=== PATIENT | male | born 2000 | race Caucasian/White ===

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

== ENCOUNTER 2022-03-21 23:22 | Emergency (ER) | payer BC, OTHER ==
[~2022-03-21] VITALS: Ht 165.1 cm; Wt 57.6 kg
[~2022-03-21 23:22] MED LIST: ACET-683 PO
[2022-03-21 23:24] VITALS: BP 115/75
[2022-03-22 01:34] LABS: GC DNA AMPLIFICATION NEGATIVE (NEGATIVE)
[2022-03-22] MEDS ORDERED: DOXYCYCLINE HYCLATE 100MG TABLET PO ONE (03:05)
[2022-03-22] MEDS ORDERED: DOXY100T PO (03:08)
== END 2022-03-22 03:32 | disposition home or self-care (01) ==
LOC: M ED 23:22
DX: A74.9 Chlamydial infection, unspecified (principal); B34.8 Other viral infections of unspecified site; J02.9 Acute pharyngitis, unspecified

== ENCOUNTER 2022-04-12 21:55 | Emergency (ER) | payer BC, OTHER, SELFPAY ==
[~2022-04-12] VITALS: Ht 165.1 cm; Wt 56.8 kg
[~2022-04-12 21:55] MED LIST changes: +DOXY100T PO
[2022-04-12] MEDS ORDERED: NS 1,000 ML IV ONE (22:10)
[2022-04-13 00:05] LABS: AMPHETAMINES LEVEL URINE NEGATIVE (NEGATIVE); BARBITURATES URINE NEGATIVE (NEGATIVE); BENZODIAZEPINES URINE NEGATIVE (NEGATIVE); CANNABINOIDS URINE NEGATIVE (NEGATIVE); COCAINE METABOLITE URINE NEGATIVE (NEGATIVE); METHADONE URINE NEGATIVE (NEGATIVE); OPIATES URINE POSITIVE (NEGATIVE); PHENCYCLIDINE URINE NEGATIVE (NEGATIVE)
[2022-04-13] MEDS ORDERED: NALOXONE 2MG/2ML SYRINGE (J2310 PER 1MG) As Ordered ONE (00:21)
[2022-04-13] MEDS ORDERED: NALOXONE 2MG/2ML SYRINGE (J2310 PER 1MG) IV STA (00:21)
[2022-04-13] MEDS ORDERED: NALOXONE 2MG/2ML SYRINGE (J2310 PER 1MG) IM STA (00:21)
[2022-04-13 01:01] LABS: BASO # 0.1 10^3/uL (0.0-0.2); BASO % 0.4 % (0.0-1.0); EOS # 0.1 10^3/uL (0.0-0.5); EOS % 0.2 % (0.0-3.0); HEMATOCRIT 48.1 % (42.0-52.0); HEMOGLOBIN 16.5 g/dl (13.5-17.5); LYMPH # 2.4 10^3/uL (1.5-5.0); LYMPH % 9.9 % (24.0-44.0); MEAN CORPUSCULAR HEMOGLOBIN 28.9 pg (27.0-33.0); MEAN CORPUSCULAR HGB CONC 34.3 g/dl (32.0-36.5); MEAN CORPUSCULAR VOLUME 84.2 fl (80.0-96.0); MONO # 1.2 10^3/uL (0.0-0.8); MONO % 5.1 % (2.0-8.0); NEUTROPHILS # 19.9 10^3/uL (1.5-8.5); NEUTROPHILS % 83.9 % (36.0-66.0); PLATELET COUNT, AUTOMATED 349 10^3/uL (150-450); RED BLOOD COUNT 5.71 10^6/uL (4.30-6.10); WHITE BLOOD COUNT 23.7 10^3/uL (4.0-10.0)
[2022-04-13 01:42] LABS: ACETAMINOPHEN LEVEL < 2.0 UG/ML (10.0-20.0); ALBUMIN 3.8 G/DL (3.2-5.2); ALT/SGPT 24 U/L (7.0-40); BILIRUBIN,DIRECT 0.1 MG/DL (<0.4); BILIRUBIN,TOTAL 0.4 MG/DL (0.3-1.2); BLOOD UREA NITROGEN 10 MG/DL (9-23); CALCIUM LEVEL 9.3 MG/DL (8.5-10.1); CARBON DIOXIDE LEVEL 26 MMOL/L (20-31); CHLORIDE LEVEL 103 MMOL/L (98-107); CREATININE FOR GFR 0.83 MG/DL (0.70-1.30); ETHYL ALCOHOL (ETHANOL) 0.003 % (0.000-0.010); GLUCOSE, FASTING 98 MG/DL (60-100); POTASSIUM SERUM 4.5 MMOL/L (3.5-5.1); SODIUM LEVEL 140 MMOL/L (136-145); THYROID STIMULATING HORMONE 3.299 uIU/ML (0.48-4.17); TOTAL PROTEIN 6.6 G/DL (5.7-8.2)
[2022-04-13 01:49] LABS: SALICYLATE LEVEL < 3.0 MG/DL (<30)
[2022-04-13 03:00] VITALS: BP 124/59
[2022-04-21] MEDS ORDERED: NALOXONE 2MG/2ML SYRINGE (J2310 PER 1MG) IV STA (06:40)
[2022-04-21] MEDS ORDERED: NALOXONE 2MG/2ML SYRINGE (J2310 PER 1MG) IM STA (06:40)
== END 2022-04-13 03:20 | disposition left against medical advice (07) ==
LOC: M ED 21:55
DX: R09.2 Respiratory arrest (principal); T43.641A Poisoning by ecstasy, accidental (unintentional), initial encounter; Z53.9 Procedure and treatment not carried out, unspecified reason
CPT/HCPCS: 36415; 36600; 80048; 80076; 80143; 80307; 82077; 82550; 82803; 84443; 85025; 93005; 93041; 94760; 96360; 99285; J2310

== ENCOUNTER 2022-04-12 22:05 | Emergency (ER) | payer BC | END 2022-04-13 05:38 | disposition left against medical advice (07) | LOC: M ED 22:05 | DX: Z53.21 Procedure and treatment not carried out due to patient leaving prior to being seen by health care provider (principal) ==

== ENCOUNTER 2022-06-19 03:23 | Emergency (ER) | payer BC ==
[~2022-06-19] VITALS: Ht 165.1 cm; Wt 61.4 kg
[2022-06-19 03:24] VITALS: BP 116/72
[2022-06-19 05:24] LABS: GC DNA AMPLIFICATION NEGATIVE (NEGATIVE)
== END 2022-06-19 05:37 | disposition left against medical advice (07) ==
LOC: M ED 03:23
DX: Z53.21 Procedure and treatment not carried out due to patient leaving prior to being seen by health care provider (principal)

== ENCOUNTER 2022-08-09 05:24 | Emergency (ER) | payer BC ==
[~2022-08-09] VITALS: Ht 165.1 cm; Wt 61.4 kg
[2022-08-09 06:03] VITALS: BP 140/88
[2022-08-09] MEDS ORDERED: OXYMETAZOLINE 0.05% NASAL SPRAY (AFRIN) ONE (06:15)
[2022-08-09] MEDS ORDERED: IBUPROFEN 800 MG TAB PO ONE (06:15)
[2022-08-09] MEDS ORDERED: MUCI600T31 PO (06:24)
[2022-08-09] MEDS ORDERED: IBUP-1022 PO (06:24)
[2022-08-09 08:07] LABS: GC DNA AMPLIFICATION NEGATIVE (NEGATIVE)
== END 2022-08-09 06:34 | disposition home or self-care (01) ==
LOC: M ED 05:24
DX: H65.02 Acute serous otitis media, left ear (principal)

== ENCOUNTER 2022-11-05 10:39 | Emergency (ER) | payer BC, MEDICAID ==
[~2022-11-05] VITALS: Ht 165.1 cm; Wt 55.3 kg
[~2022-11-05 10:39] MED LIST changes: +IBUP-1022 PO; +MUCI600T31 PO
[2022-11-05] MEDS ORDERED: BOOSTRIX VACCINE (TETANUS/DIPHTH/ACEL. PERTUSSIS) 0.5ML SYR IM ONE (11:00)
[2022-11-05] MEDS ORDERED: LIDOCAINE 2% MDV 20ML VIAL SC ONE (11:00)
[2022-11-05 11:49] VITALS: BP 122/82; TEMP 98; O2SAT 99
== END 2022-11-05 11:51 | disposition home or self-care (01) ==
LOC: M ED 10:39
DX: S61.215A Laceration without foreign body of left ring finger without damage to nail, initial encounter (principal); W26.8XXA Contact with other sharp object(s), not elsewhere classified, initial encounter; Y92.89 Other specified places as the place of occurrence of the external cause; Y93.89 Activity, other specified; Y99.0 Civilian activity done for income or pay; F17.200 Nicotine dependence, unspecified, uncomplicated; F12.90 Cannabis use, unspecified, uncomplicated

== ENCOUNTER 2022-11-13 10:29 | Emergency (ER) | payer BC, MEDICAID ==
[~2022-11-13] VITALS: Ht 165.1 cm; Wt 56.8 kg
[2022-11-13 10:31] VITALS: BP 114/65; TEMP 98.3; O2SAT 98
== END 2022-11-13 11:21 | disposition home or self-care (01) ==
LOC: M ED 10:29
DX: Z48.02 Encounter for removal of sutures (principal); F17.200 Nicotine dependence, unspecified, uncomplicated; F12.90 Cannabis use, unspecified, uncomplicated

== ENCOUNTER 2022-12-09 17:02 | Emergency (ER) | payer OTHER, MEDICAID ==
[~2022-12-09] VITALS: Ht 165.1 cm; Wt 55.4 kg
[2022-12-09] MEDS ORDERED: PRED20TA PO (18:19)
[2022-12-09] MEDS ORDERED: CLAR10CA3 PO (18:19)
[2022-12-09 18:38] VITALS: BP 131/87; TEMP 98.4; O2SAT 100
== END 2022-12-09 18:38 | disposition home or self-care (01) ==
LOC: M ED 17:02
DX: L23.7 Allergic contact dermatitis due to plants, except food (principal)